=== PATIENT | male | born 1965 | race Caucasian/White ===

== ENCOUNTER 2024-03-21 12:41 | Emergency (ER) | payer BC, SELFPAY ==
[2024-03-21 12:43] VITALS: BP 136/94
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
[2024-03-21] MEDS: ADACEL 0.5 ML IM (13:07)
[2024-03-21] MEDS: TYLENOL 1000 MG PO (13:09)
[2024-03-21] MEDS: ROXICODONE 5 MG PO ×2 (13:09→15:08)
[2024-03-21 13:21] VITALS: BMI 32.8
[2024-03-21 13:29] VITALS: BP 141/82
[2024-03-21 14:18] VITALS: BP 130/77
[2024-03-21 15:00] VITALS: BP 137/76
[2024-03-21] MEDS: LIDOCAINE 4% PATCH 1 PATCH TOPICAL (15:07)
[2024-03-21] MEDS: MOTRIN 600 MG PO (15:08)
== END 2024-03-21 15:33 | disposition home or self-care (01) ==
LOC: EMR 12:41
PROVIDERS: EMERGENCY PHYSICIAN Emergency Medicine; FAMILY PHYSICIAN Family Medicine
DX: S22.41XA Multiple fractures of ribs, right side, initial encounter for closed fracture (principal); S60.512A Abrasion of left hand, initial encounter; S60.511A Abrasion of right hand, initial encounter; S80.211A Abrasion, right knee, initial encounter; V18.0XXA Pedal cycle driver injured in noncollision transport accident in nontraffic accident, initial encounter; Y93.55 Activity, bike riding; Z23 Encounter for immunization; M10.9 Gout, unspecified; I10 Essential (primary) hypertension; E78.5 Hyperlipidemia, unspecified; Z91.048 Other nonmedicinal substance allergy status
CPT/HCPCS: 99284; 90471; 71250; 73030; 90715